=== PATIENT | male | born 1965 | race Caucasian/White ===

== ENCOUNTER 2017-09-07 10:45 | Emergency (ER) | payer MEDICAID, OTHER ==
[~2017-09-07] VITALS: Ht 167.6 cm; Wt 79.0 kg
[~2017-09-07 10:45] MED LIST: DARV PO
[2017-09-07 10:54] VITALS: BP 161/79; PULSE 60; RESP 16; TEMP 97.8; O2SAT 100
[2017-09-07] MEDS ORDERED: HYDR-3583 PO (10:58)
[2017-09-07 11:19] VITALS: RESP 18; O2SAT 98
[2017-09-07] MEDS ORDERED: SODIUM CHLORIDE 0.9% FLUSH 10 ML FLUSH IVF PRN (11:30)
[2017-09-07] MEDS ORDERED: SODIUM CHLOR 0.9% 1000 ML INJ 1,000 ML IV ONE (11:30)
[2017-09-07 11:40] LABS: AUTOMATED NEUTROPHIL # 3.8 TH/MM3 (1.8-7.7); BASOPHIL % 0.3 % (0.0-2.0); EOSINOPHIL # 0.1 TH/MM3 (0-0.4); EOSINOPHIL % 1.8 % (0.0-4.0); HEMATOCRIT 41.4 % (39.0-51.0); HEMOGLOBIN 14.5 GM/DL (13.0-17.0); LYMPH % 31.4 % (9.0-44.0); LYMPHOCYTE # 1.9 TH/MM3 (1.0-4.8); MEAN CORPUSCULAR HEMOGLOBIN 31.6 PG (27.0-34.0); MEAN CORPUSCULAR HGB CONC 35.1 % (32.0-36.0); MEAN PLATELET VOLUME 9.1 FL (7.0-11.0); MONO % 5.1 % (0.0-8.0); MONOCYTE # 0.3 TH/MM3 (0-0.9); NEUT % 61.4 % (16.0-70.0); PLATELET COUNT 235 TH/MM3 (150-450); RED CELL DISTRIBUTION WIDTH 13.8 % (11.6-17.2); WHITE BLOOD COUNT 6.1 TH/MM3 (4.0-11.0)
[2017-09-07 11:51] LABS: PROTHROMBIN TIME - PATIENT 10.5 SEC (9.8-11.6)
[2017-09-07 11:57] LABS: ALBUMIN 4.2 GM/DL (3.4-5.0); AST (GOT) 28 U/L (15-37); BLOOD UREA NITROGEN 13 MG/DL (7-18); CALCIUM 9.5 MG/DL (8.5-10.1); CHLORIDE 104 MEQ/L (98-107); CREATININE 0.97 MG/DL (0.60-1.30); GLOMERULAR FILTRATION RATE 81 ML/MIN (>89); GLUCOSE,RANDOM 97 MG/DL (74-106); SODIUM (NA) 140 MEQ/L (136-145)
[2017-09-07 11:58] LABS: ALT (GPT) 54 U/L (12-78)
[2017-09-07 12:00] VITALS: BP 161/79; PULSE 58; RESP 16; O2SAT 100
[2017-09-07 12:02] LABS: ALKALINE PHOSPHATASE 78 U/L (45-117); TOTAL BILIRUBIN ADULT 0.4 MG/DL (0.2-1.0); TOTAL PROTEIN 7.4 GM/DL (6.4-8.2); TROPONIN I LESS THAN 0.02 NG/ML (0.02-0.05)
[2017-09-07 12:28] LABS: BILIRUBIN, URINE NEG (NEG); BLOOD, URINE NEG (NEG); GLUCOSE,URINE NEG (NEG); KETONE, URINE NEG (NEG); NITRITE,URINE NEG (NEG); PH, URINE 6.5 (5.0-8.5); URINE COLOR LIGHT-YELLOW (YELLW/STRAW); URINE LEUKOCYTE ESTERASE NEG (NEG)
--- NOTE | 2017-09-07 12:28 | PD ---
HPI Chief Complaint: Numbness/Tingling Time Seen by Provider: 11:01 Travel History International Travel<30 days: No Contact w/Intl Traveler<30days: No Traveled to known affect area: No History of Present Illness HPI Patient is a 52-year-old male who presents the emergency room with complaints of numbness to the left side of his body. Patient reports that he went to work today around 9:30 AM, reports that he began to feel funny. Patient reports that he had a weird sensation in the back of his throat, reports that he then began to feel numbness and tingling to the left arm as well as left leg. Patient reports that he feels a little better at this time but does have persistent numbness. Patient denies history of CVA, TIAs in the past, reports only medical history of chronic pains due to spinal stenosis and does take hydrocodone for this. Patient denies any fevers or chills, denies any headache or dizziness, patient with no other complaints at this time. PFSH Past Medical History Medical History: Denies Significant Hx Medical other: Yes (CHORNIC BACK AND R SHOULDER PAIN.) Past Surgical History Tonsillectomy: Yes Social History Alcohol Use: No Tobacco Use: No Substance Use: No Allergies-Medications (Allergen,Severity, Reaction): Coded Allergies: penicillin G (Verified Allergy, Severe, Hives, 09/07/17) Reported Meds & Prescriptions Reported Meds & Active Scripts Active Reported Hydrocodone-Acetaminophen 10-325 mg Tab 1 Tab PO Q6H PRN Review of Systems General / Constitutional: No: Fever Eyes: No: Visual changes HENT: No: Headaches, Vertigo, Neck Stiffness, Neck Pain Cardiovascular: No: Chest Pain or Discomfort Respiratory: No: Shortness of Breath Gastrointestinal: No: Abdominal Pain Genitourinary: No: Dysuria Musculoskeletal: No: Pain Skin: No Rash Neurologic: Positive: Paresthesia, No: Weakness, Headache, Incontinence, Seizures Psychiatric: No: Depression Endocrine: No: Polydipsia Hematologic/Lymphatic: No: Easy Bruising Physical Exam Narrative GENERAL: NAD SKIN: Focused skin assessment warm/dry. HEAD: Atraumatic. Normocephalic. EYES: Pupils equal and round. No scleral icterus. No injection or drainage. ENT: No nasal bleeding or discharge. Mucous membranes pink and moist. NECK: Trachea midline. No JVD. CARDIOVASCULAR: Regular rate and rhythm. No murmur appreciated. RESPIRATORY: No accessory muscle use. Clear to auscultation. Breath sounds equal bilaterally. GASTROINTESTINAL: Abdomen soft, non-tender, nondistended. Hepatic and splenic margins not palpable. MUSCULOSKELETAL: No obvious deformities. No clubbing. No cyanosis. No edema. NEUROLOGICAL: Awake and alert. No obvious cranial nerve deficits. Motor grossly within normal limits. Normal speech. PSYCHIATRIC: Appropriate mood and affect; insight and judgment normal. Data Data Last Documented VS Vital Signs Date Time Temp Pulse Resp B/P (MAP) Pulse Ox O2 Delivery O2 Flow Rate FiO2 09/07/17 11:19 18 98 Room Air 09/07/17 10:54 97.8 60 161/79 (106) Orders Orders Electrocardiogram (09/07/17 11:17) Prothrombin Time / Inr (Pt) (09/07/17 11:17) Act Partial Throm Time (Ptt) (09/07/17 11:17) Complete Blood Count With Diff (09/07/17 11:17) Comprehensive Metabolic Panel (09/07/17 11:17) Creatine Kinase (Cpk) (09/07/17 11:17) Troponin I (09/07/17 11:17) Urinalysis - C+S If Indicated (09/07/17 11:17) Ct Brain W/O Iv Contrast(Rout) (09/07/17 11:17) Chest, Single Ap (09/07/17 11:17) Ecg Monitoring (09/07/17 11:17) Iv Access Insert/Monitor (09/07/17 11:17) Oximetry (09/07/17 11:17) Sodium Chloride 0.9% Flush (Ns Flush) (09/07/17 11:30) Sodium Chlor 0.9% 1000 Ml Inj (Ns 1000 M (09/07/17 11:30) Mri Brain W/O Contrast (09/07/17 ) Labs Laboratory Tests Test 09/07/17 11:00 09/07/17 11:59 White Blood Count 6.1 TH/MM3 Red Blood Count 4.60 MIL/MM3 Hemoglobin 14.5 GM/DL Hematocrit 41.4 % Mean Corpuscular Volume 90.0 FL Mean Corpuscular Hemoglobin 31.6 PG Mean Corpuscular Hemoglobin Concent 35.1 % Red Cell Distribution Width 13.8 % Platelet Count 235 TH/MM3 Mean Platelet Volume 9.1 FL Neutrophils (%) (Auto) 61.4 % Lymphocytes (%) (Auto) 31.4 % Monocytes (%) (Auto) 5.1 % Eosinophils (%) (Auto) 1.8 % Basophils (%) (Auto) 0.3 % Neutrophils # (Auto) 3.8 TH/MM3 Lymphocytes # (Auto) 1.9 TH/MM3 Monocytes # (Auto) 0.3 TH/MM3 Eosinophils # (Auto) 0.1 TH/MM3 Basophils # (Auto) 0.0 TH/MM3 CBC Comment DIFF FINAL Differential Comment Prothrombin Time 10.5 SEC Prothromb Time International Ratio 1.0 RATIO Activated Partial Thromboplast Time 26.4 SEC Blood Urea Nitrogen 13 MG/DL Creatinine 0.97 MG/DL Random Glucose 97 MG/DL Total Protein 7.4 GM/DL Albumin 4.2 GM/DL Calcium Level 9.5 MG/DL Alkaline Phosphatase 78 U/L Aspartate Amino Transf (AST/SGOT) 28 U/L Alanine Aminotransferase (ALT/SGPT) 54 U/L Total Bilirubin 0.4 MG/DL Sodium Level 140 MEQ/L Potassium Level 4.2 MEQ/L Chloride Level 104 MEQ/L Carbon Dioxide Level 28.0 MEQ/L Anion Gap 8 MEQ/L Estimat Glomerular Filtration Rate 81 ML/MIN Total Creatine Kinase 193 U/L Troponin I LESS THAN 0.02 NG/ML Urine Color LIGHT-YELLOW Urine Turbidity CLEAR Urine pH 6.5 Urine Specific [place] 1.009 Urine Protein NEG mg/dL Urine Glucose (UA) NEG mg/dL Urine Ketones NEG mg/dL Urine Occult Blood NEG Urine Nitrite NEG Urine Bilirubin NEG Urine Urobilinogen LESS THAN 2.0 MG/DL Urine Leukocyte Esterase NEG Urine WBC LESS THAN 1 /hpf Microscopic Urinalysis Comment CATH-CULT NOT IND MDM Medical Decision Making Medical Screen Exam Complete: Yes Emergency Medical Condition: Yes Medical Record Reviewed: Yes Interpretation(s) EKG at 1054:Sinus echo at 58bpm, qt/qtc: 394/391, no acute st or t wave changes Vital Signs Date Time Temp Pulse Resp B/P (MAP) Pulse Ox O2 Delivery O2 Flow Rate FiO2 09/07/17 11:19 18 98 Room Air 09/07/17 10:54 97.8 60 16 161/79 (106) 100 Differential Diagnosis CVA, TIA, Anxiety reaction, electrolyte abnormality Narrative Course During the course of the patients emergency department visit, the patients history, examination, and differential diagnosis were reviewed with the patient. The patient was placed on a cardiac surgeon with oximetry and frequent blood pressure monitoring. The patient had an IV access obtained and blood work sent for analysis. The patients laboratory studies were reviewed and remarkable for CBC & BMP Diagram 09/07/17 11:00 Total Protein 7.4, Albumin 4.2, Calcium Level 9.5, Alkaline Phosphatase 78, Aspartate Amino Transf (AST/SGOT) 28, Alanine Aminotransferase (ALT/SGPT) 54, Total Bilirubin 0.4 Radiology studies were reviewed and remarkable for Last Impressions Head CT 09/07/17 1117 Signed Impressions: Service Date/Time: Thursday, September 07, 2017 12:10 - CONCLUSION: No acute intracranial findings. Nash Childers MD Chest X-Ray 09/07/17 1117 Signed Impressions: Service Date/Time: Thursday, September 07, 2017 12:21 - CONCLUSION: No acute cardiopulmonary disease identified. Nash Childers MD Brain MRI 09/07/17 0000 Signed Impressions: Service Date/Time: Thursday, September 07, 2017 13:45 - CONCLUSION: Brain MRI within normal limits. Nash Childers MD All labs and studies reviewed, patient with no acute findings on CT of the head as well as brain MRI. Patient is feeling better at this time, reports slight paresthesias. Plan to have patient follow-up with neurology as outpatient. Signs and symptoms of when to return to the emergency room was reviewed patient in detail. Diagnosis Primary Impression: Paresthesias Referrals: Eben Garcia MD Patient Instructions: General Instructions Additional Instructions: Please provide patient with a copy of their lab work and studies at discharge* * Please follow up with your primary care doctor in 2-3 days Return to the ER if symptoms worsen or progress Return to the ER as needed Please follow-up with neurologist as outpatient Disposition: 01 DISCHARGE HOME Condition: Stable Helena Cr DO September 07, 2017 12:28
--- NOTE | 2017-09-07 12:33 | RADRPT ---
EXAM DATE/TIME: 09/07/2017 12:10 [facility] COMPARISON: No previous studies available for comparison. INDICATIONS : Left sided weakness today. RADIATION DOSE: 39.56 CTDIvol (mGy) MEDICAL HISTORY : None SURGICAL HISTORY : None. ENCOUNTER: Initial ACUITY: 1 day PAIN SCALE: 0/10 LOCATION: Bilateral head TECHNIQUE: Multiple contiguous axial images were obtained of the head. Using automated exposure control and adj ustment of the mA and/or kV according to patient size, radiation dose was kept as low as reasonably a chievable to obtain optimal diagnostic quality images. DICOM format image data is available electro nically for review and comparison. FINDINGS: CEREBRUM: The ventricles are normal for age. No evidence of midline shift, mass lesion, hemorrhage or acute in farction. No extra-axial fluid collections are seen. POSTERIOR FOSSA: The cerebellum and brainstem are intact. The 4th ventricle is midline. The cerebellopontine angle i s unremarkable. EXTRACRANIAL: The visualized portion of the orbits is intact. SKULL: The calvaria is intact. No evidence of skull fracture. CONCLUSION: No acute intracranial findings. Nash Childers MD on September 07, 2017 at 12:30 Board Certified Radiologist. This report was verified electronically.
--- NOTE | 2017-09-07 12:45 | RADRPT ---
EXAM DATE/TIME: 09/07/2017 12:21 [facility] COMPARISON: No previous studies available for comparison. INDICATIONS : Shortness of breath. MEDICAL HISTORY : None. SURGICAL HISTORY : None. ENCOUNTER: Initial ACUITY: 1 day PAIN SCORE: 0/10 LOCATION: Bilateral chest FINDINGS: Single AP view of the chest. The lungs are clear. Cardiomediastinal silhouette within normal limits. No evidence of pleural effusion or pneumothorax. Possible intra-articular osteochondral bodies in the right glenohumeral joint. CONCLUSION: No acute cardiopulmonary disease identified. Nash Childers MD on September 07, 2017 at 12:41 Board Certified Radiologist. This report was verified electronically.
[2017-09-07 13:00] VITALS: BP 170/89; PULSE 70; RESP 18; O2SAT 99
[2017-09-07 14:00] VITALS: BP 138/80; PULSE 60; RESP 16; O2SAT 99
--- NOTE | 2017-09-07 14:17 | RADRPT ---
EXAM DATE/TIME: 09/07/2017 13:45 [facility] COMPARISON: No previous studies available for comparison. INDICATIONS : Dizziness. Facial numbness, left side weakness. MEDICAL HISTORY : None. SURGICAL HISTORY : Total knee replacement, left. Sleep apnea sx. ENCOUNTER: Initial ACUITY: 1 day PAIN SCORE: 0/10 LOCATION: cranial TECHNIQUE: Multiplanar, multisequence MRI of the brain was performed without contrast. FINDINGS: CEREBRUM: The ventricles are normal for age. No evidence of midline shift, mass lesion, hemorrhage or acute in farction. No extraaxial fluid collections are seen. The pituitary gland and suprasellar cistern are normal in configuration. WHITE MATTER: No significant signal abnormalities are seen in the white matter. POSTERIOR FOSSA: The cerebellum and brainstem are intact. The 4th ventricle is midline. The cerebellopontine angle is unremarkable. The cerebellar tonsils are normal in position. DIFFUSION IMAGING: No focal areas of restricted diffusion are seen. No evidence of acute infarction. EXTRACRANIAL: The visualized portions of the orbits and paranasal sinuses are unremarkable. CONCLUSION: Brain MRI within normal limits. Nash Childers MD on September 07, 2017 at 14:13 Board Certified Radiologist. This report was verified electronically.
--- NOTE | 2017-09-08 10:33 | EKG ---
Date Performed: 09/07/2017 Time Performed: 10:54:37 PTAGE: 52 years EKG: SINUS BRADYCARDIA BORDERLINE ECG NO PREVIOUS TRACING DOCTOR: Eben Hunt Interpretating Date/Time 09/08/2017 10:31:59
== END 2017-09-07 15:00 | disposition home or self-care (01) ==
LOC: NEPC 10:45
DX: R20.2 Paresthesia of skin (principal); R00.1 Bradycardia, unspecified
CPT/HCPCS: 70450; 70551; 71045; 80053; 81001; 82550; 84484; 85025; 85610; 85730; 93005; 96360; 99285; J7030